=== PATIENT | male | born 1945 | race Caucasian/White ===

== ENCOUNTER 2017-02-16 00:43 | Day surgery (SDC) | payer MEDICARE, OTHER ==
[~2017-02-16 00:43] MED LIST: ASPI-973 PO; CYCL5TAB PO; LOPE2CAP PO; METO25TA99 PO; MG T1TAB2 PO; OMEP40CA36 PO; ROSU40TA PO; VIT1CAPS8 PO
[2017-02-16] MEDS ORDERED: Lactated Ringer's 1,000 ML IV ONE (06:00)
[2017-02-16] MEDS ORDERED: Lactated Ringer's 1,000 ML IV SCH (07:10)
== END 2017-02-16 23:59 | disposition home or self-care (01) ==
LOC: END 00:43
PROVIDERS: ATTEND Internal Medicine Gastroenterology
DX: Z12.11 Encounter for screening for malignant neoplasm of colon (principal); K21.9 Gastro-esophageal reflux disease without esophagitis